=== PATIENT | female | born 2000 | race Caucasian/White ===

== ENCOUNTER 2021-10-08 08:54 | Inpatient (IN) | payer OTHER ==
[~2021-10-08 08:54] MED LIST: Bupivacaine 0.25% HCL 30 ML VIAL ONE
[2021-10-08] MEDS ORDERED: Ondansetron PF 4 MG/2 ML Vial IVP PRN (09:05)
[2021-10-08] MEDS ORDERED: Labetalol HCl 100 MG/20 ML VIAL SLOW IVP PRN ×2 (09:05)
[2021-10-08] MEDS ORDERED: Docusate 100 MG CAP PO PRN (09:05)
[2021-10-08] MEDS ORDERED: Promethazine HCl 25 MG/ML VIAL IM PRN (09:05)
[2021-10-08] MEDS ORDERED: hydrALAZINE 20 MG/ML VIAL SLOW IVP PRN ×3 (09:05)
[2021-10-08] MEDS ORDERED: Calcium Gluc 4.6 MEQ/10 ML (100 MG/ML) SLOW IVP PRN (09:05)
[2021-10-08] MEDS ORDERED: Butorphanol Tartrate 1 MG/ML VIAL SLOW IVP PRN (09:05)
[2021-10-08] MEDS ORDERED: Lorazepam 2 MG/ML VIAL SLOW IVP PRN (09:05)
[2021-10-08 10:18] LABS: #Basophils 0.1 10x3/uL (0.0-0.2); #Eosinphils 0.1 10x3/uL (0.0-0.5); #Monocytes 0.8 10x3/uL (0.0-1.1); #Neutrophils 9.3 10x3/uL (1.5-8.4); %Basophils 0.4 % (0.0-2.0); %Lymphocytes 21.6 % (18.0-47.0); %Monocytes 6.3 % (0.0-10.0); %Neutrophils 70.2 % (40.0-75.0); Hemoglobin 11.9 g/dL (12.0-15.5); Mean Corpuscular HGB CONC 34.6 g/dL (32.0-36.0); Mean Corpuscular Hemoglobin 30.7 pg (27.0-33.0); Mean Corpuscular Volume 88.7 fl (81.6-98.3); Mean Platelet Volume 11.9 fl (7.4-10.4); Platelet Count 168 10x3/uL (150-450); RBC Distribution Width 12.5 % (11.5-14.5); Red Blood Cell (RBC) Count 3.88 10x6/uL (3.90-5.03); White Blood Cell (WBC) Count 13.2 10x3/uL (3.5-10.5)
[2021-10-08 10:26] VITALS: BMI 26.2
[2021-10-08 10:44] LABS: Uric Acid 7.5 mg/dL (2.6-6.0)
[2021-10-08 10:56] LABS: Syphilis Antibody Nonreactive (Nonreactive); Syphilis Antibody Index 0.04 S/CO (<1.00 Non-Reactive)
[2021-10-08 10:58] LABS: HBSAg Index 0.25 S/CO (0-0.99); HIV (1/2) Antibody/Antigen Non-Reactive (NonReactive); HIV 1/2 INDEX 0.08 S/CO (<1.00); Hep B Surf Ag Non-Reactive S/CO (NonReactive)
[2021-10-08 11:07] LABS: SARS-CoV-2 NAA Rapid Test Not Detected (NotDetected)
[2021-10-08] MEDS ORDERED: Labetalol HCl 200 MG TAB PO SCH (15:00)
[2021-10-08] MEDS ORDERED: NIFEdipine 10 MG CAP ONE (15:22)
[2021-10-08] MEDS: Labetalol HCl 200 MG TAB PO SCH (15:23)
[2021-10-09] MEDS: Labetalol HCl 200 MG TAB PO SCH ×4 (08:34→21:08)
[2021-10-09] MEDS: NIFEdipine XL 30 MG TAB PO SCH (11:53)
[2021-10-09 15:41] LABS: Protein, Urine 12 mg/dL (1-14)
[2021-10-09 15:56] LABS: Protein - 24 Hr 223 mg/24 hr (Less than 300); Urine Total Volume 1860 mL (600-1600)
[2021-10-09 17:35] LABS: 24 Hr Creatinine 1441.87 mg/24 hr (710-1650); Creatinine, Urine 77.52 mg/dL (47-110)
[2021-10-09] MEDS: Acetaminophen 500 MG TAB PO PRN (19:54)
[2021-10-09] MEDS: Lactated Ringer's 1,000 ML IV SCH ×2 (21:01→21:02)
[2021-10-09] MEDS: Aspirin 81 mg Enteric Coated Tablet PO SCH (21:02)
[2021-10-09] MEDS ORDERED: Fioricet 325/50/40 mg Tablet PO PRN (21:59)
[2021-10-10] MEDS: Lactated Ringer's 1,000 ML IV SCH (00:10)
[2021-10-10] MEDS ORDERED: Ampicillin 2 GM VIAL ONE ×3 (00:40→15:02)
[2021-10-10] MEDS ORDERED: Betamet Acet/Betamet Na Ph 30 MG/5 ML VIAL ONE (00:41)
[2021-10-10] MEDS ORDERED: Magnesium Sulfate 20 gm/500 ml 20 GM/500 ML BAG ONE (01:33)
[2021-10-10] MEDS ORDERED: NS w/ Oxytocin 30 units 500 ML ONE ×2 (02:10→21:23)
[2021-10-10] MEDS: Acetaminophen 500 MG TAB PO PRN (03:01)
[2021-10-10] MEDS ORDERED: Magnesium Sulfate 20 gm/500 ml 4 GM/100 ML BAG IVPB ONE (07:45)
[2021-10-10] MEDS ORDERED: Magnesium Sulfate 20 gm/500 ml 20 GM/500 ML BAG IVPB PRN (07:45)
[2021-10-10] MEDS: Ampicillin 2 GM in Sodium Chloride 0.9% 100 ML IVPB SCH ×2 (08:19→15:23)
[2021-10-10 09:34] LABS: #Monocytes 0.2 10x3/uL (0.0-1.1); #Neutrophils 10.8 10x3/uL (1.5-8.4); %Basophils 0.1 % (0.0-2.0); %Eosinophils 0.1 % (0.0-6.0); %Lymphocytes 11.3 % (18.0-47.0); %Monocytes 1.3 % (0.0-10.0); %Neutrophils 86.6 % (40.0-75.0); Hemoglobin 12.7 g/dL (12.0-15.5); Mean Corpuscular HGB CONC 34.9 g/dL (32.0-36.0); Mean Corpuscular Hemoglobin 30.3 pg (27.0-33.0); Mean Corpuscular Volume 86.9 fl (81.6-98.3); Mean Platelet Volume 11.6 fl (7.4-10.4); Platelet Count 224 10x3/uL (150-450); RBC Distribution Width 12.2 % (11.5-14.5); Red Blood Cell (RBC) Count 4.19 10x6/uL (3.90-5.03); White Blood Cell (WBC) Count 12.4 10x3/uL (3.5-10.5)
[2021-10-10] MEDS: Labetalol HCl 200 MG TAB PO SCH ×2 (09:41→21:22)
[2021-10-10] MEDS ORDERED: Fentanyl 2 mcg/Bup 0.1% Cadd 100 ML ONE (15:01)
[2021-10-10] MEDS ORDERED: ePHEDrine Sulfate 50 MG/10 ML VIAL SLOW IVP PRN (15:02)
[2021-10-10] MEDS ORDERED: diphenhydrAMINE 50 MG/ML VIAL IVP PRN (15:02)
[2021-10-10] MEDS ORDERED: Promethazine HCl 25 MG/ML VIAL IM PRN (15:02)
[2021-10-10] MEDS ORDERED: Acetaminophen 325 MG TAB PO PRN (15:02)
[2021-10-10] MEDS ORDERED: Moisturizing Cream (Eucerin) 113 GM JAR TOP PRN (15:02)
[2021-10-10] MEDS ORDERED: Lactated Ringer's 500 ML IV PRN (15:02)
[2021-10-10] MEDS ORDERED: Naloxone HCl 0.4 mg/ml Vial IVP PRN ×2 (15:02)
[2021-10-10] MEDS ORDERED: Ondansetron PF 4 MG/2 ML Vial IVP PRN ×2 (15:02→21:17)
[2021-10-10] MEDS ORDERED: Fentanyl 2 mcg/Bupivacaine 0.1% Cassette 100 ML EPIDURAL SCH (15:15)
[2021-10-10] MEDS ORDERED: Communication Order-Pharmacy FS SCH (15:15)
[2021-10-10] MEDS ORDERED: Misoprostol 200 MCG TAB VAG PRN (21:17)
[2021-10-10] MEDS ORDERED: Preparation H Ointment 28 GM TUBE PR PRN (21:17)
[2021-10-10] MEDS ORDERED: Bisacodyl 10 MG SUPP PR PRN (21:17)
[2021-10-10] MEDS ORDERED: Boostrix 0.5 ML (Tdap) VIAL (>/=7 yrs of age) IM ONE (21:17)
[2021-10-10] MEDS ORDERED: hydrALAZINE 20 MG/ML VIAL SLOW IVP PRN (21:17)
[2021-10-10] MEDS ORDERED: Benzocaine-Menthol 82.5 ML CAN TOP PRN (21:17)
[2021-10-10] MEDS ORDERED: Zolpidem Tartrate 5 MG TAB PO PRN (21:17)
[2021-10-10] MEDS ORDERED: Milk Of Magnesia 30 ML UDCUP PO PRN (21:17)
[2021-10-10] MEDS ORDERED: HYDROcodone/Acetaminophen 5/325 mg Tablet PO PRN (21:17)
[2021-10-10] MEDS ORDERED: Lanolin Ointment 7 GM TUBE TOP PRN (21:17)
[2021-10-10] MEDS ORDERED: diphenhydrAMINE 25 MG CAP PO PRN (21:17)
[2021-10-10] MEDS ORDERED: Witch Hazel-Glycerin 1 EACH JAR TOP PRN (21:19)
[2021-10-10 21:26] LABS: RapidComm Collect By CBN
[2021-10-10 21:27] LABS: RapidComm Collect By CBN
[2021-10-10] MEDS ORDERED: NS w/ Oxytocin 30 units 500 ML IV SCH (21:30)
[2021-10-10] MEDS: Ibuprofen 800 MG TAB PO SCH (22:44)
[2021-10-11] MEDS: Labetalol HCl 200 MG TAB PO SCH ×3 (00:39→21:34)
[2021-10-11] MEDS: NIFEdipine XL 30 MG TAB PO SCH (00:39)
[2021-10-11] MEDS: Aspirin 81 mg Enteric Coated Tablet PO SCH (00:39)
[2021-10-11] MEDS: Lactated Ringer's 1,000 ML IV SCH (00:39)
[2021-10-11] MEDS: Ibuprofen 800 MG TAB PO SCH ×3 (05:10→21:33)
[2021-10-11] MEDS: Ferrous Sulfate 325 MG TAB PO SCH ×2 (07:56→17:27)
[2021-10-11] MEDS: Prenatal Vitamin 1 TAB PO SCH (09:30)
[2021-10-11] MEDS: Docusate 100 MG CAP PO SCH ×2 (09:30→21:34)
[2021-10-11] MEDS: HYDROcodone/Acetaminophen 5/325 mg Tablet PO PRN ×3 (09:36→23:19)
[2021-10-12] MEDS: Ibuprofen 800 MG TAB PO SCH ×3 (05:48→22:49)
[2021-10-12] MEDS: Docusate 100 MG CAP PO SCH ×2 (08:06→20:22)
[2021-10-12] MEDS: Prenatal Vitamin 1 TAB PO SCH (08:06)
[2021-10-12] MEDS: Labetalol HCl 200 MG TAB PO SCH ×2 (08:06→20:22)
[2021-10-12] MEDS: Ferrous Sulfate 325 MG TAB PO SCH ×2 (08:07→16:18)
[2021-10-13] MEDS: Ibuprofen 800 MG TAB PO SCH ×2 (05:40→13:50)
[2021-10-13 08:31] VITALS: TEMP 98
[2021-10-13] MEDS: Prenatal Vitamin 1 TAB PO SCH (11:23)
[2021-10-13] MEDS: Labetalol HCl 200 MG TAB PO SCH (11:23)
[2021-10-13] MEDS: Docusate 100 MG CAP PO SCH (11:23)
[2021-10-13 15:21] VITALS: BP 106/72
== END 2021-10-13 15:00 | disposition home or self-care (01) | DRG 807 ==
LOC: CSHLD 08:54 → CSHANTE 10-09 19:55 → CSHLD 10-09 23:54 → CSHPP 10-11 01:30
PROVIDERS: ADMIT Obstetrics & Gynecology; ATTEND Obstetrics & Gynecology
PROC: 10E0XZZ Delivery of Products of Conception, External Approach (ICD-10-PCS; principal; 2021-10-10)
PROC: 0W8NXZZ Division of Female Perineum, External Approach (ICD-10-PCS; 2021-10-10)
PROC: 0UQMXZZ Repair Vulva, External Approach (ICD-10-PCS; 2021-10-10)
PROC: 10907ZC Drainage of Amniotic Fluid, Therapeutic from Products of Conception, Via Natural or Artificial Opening (ICD-10-PCS; 2021-10-10)
PROC: 3E033VJ Introduction of Other Hormone into Peripheral Vein, Percutaneous Approach (ICD-10-PCS; 2021-10-10)
PROC: 10H07YZ Insertion of Other Device into Products of Conception, Via Natural or Artificial Opening (ICD-10-PCS; 2021-10-10)
DX: O14.94 Unspecified pre-eclampsia, complicating childbirth (principal); Z37.0 Single live birth; Z3A.34 34 weeks gestation of pregnancy; Z20.822 Contact with and (suspected) exposure to COVID-19; O36.5930 Maternal care for other known or suspected poor fetal growth, third trimester, not applicable or unspecified; Z79.899 Other long term (current) drug therapy; O71.82 Other specified trauma to perineum and vulva
CPT/HCPCS: 36415; 51702; 76815; 76819; 81003; 82570; 82805; 83615; 84156; 84450; 84460; 84550; 85025; 86780; 86850; 86900; 86901; 87340; 87389; 88307; 93005; 93010; J0290; J0595; J0702; J2590; J3475; J3490; J7120; S0020; U0002